=== PATIENT | male | born 1970 | race Caucasian/White ===

== ENCOUNTER → 2018-01-30 | Outpatient (CLI) | payer OTHER | LOC: CIMAGING 13:57 | PROVIDERS: ATTEND Family Medicine | DX: S22.080A Wedge compression fracture of T11-T12 vertebra, initial encounter for closed fracture (principal); M51.35 Other intervertebral disc degeneration, thoracolumbar region; R93.7 Abnormal findings on diagnostic imaging of other parts of musculoskeletal system | CPT/HCPCS: 72070-PO; 72100-PO ==